=== PATIENT | male | born 1995 | race Caucasian/White ===

== ENCOUNTER 2022-11-21 18:29 | Inpatient (IN) | payer BC ==
[2022-11-21 18:53] VITALS: BMI 25.1
[2022-11-21] MEDS ORDERED: SODIUM CHLORIDE 0.9% 500 ML INFUS.BAG IV ONE (19:39)
[2022-11-21] MEDS ORDERED: ONDANSETRON 4 MG/2 ML VIAL IVPUSH ONE (19:39)
[2022-11-21] MEDS ORDERED: ONDANSETRON 4 MG/2 ML VIAL ONE (20:17)
[2022-11-21 20:27] LABS: BASO % 0.8 % (0-2.0); EOS % 2.5 % (0-4.5); HEMOGLOBIN 15.4 GM/dL (11.7-16.9); LYMPH % 23.3 % (8-40); MCH 29.4 pg (25.7-33.7); MCHC 34.2 g/dl (32.0-35.9); MEAN CELL VOLUME 85.9 fl (80-96); MEAN PLT VOLUME 8.7 fl (7.5-11.1); MONO % 11.7 % (3.8-10.2); NEUT % 61.7 % (42.8-82.8); PLATELET COUNT 214 10^3/uL (134-434); RBC 5.24 M/mm3 (4.00-5.60); RDW 16.7 % (11.9-15.9)
[2022-11-21 20:47] LABS: POTASSIUM 3.7 mmol/L (3.5-5.1)
[2022-11-21 20:49] LABS: CALCIUM 8.9 mg/dL (8.5-10.1)
[2022-11-21 20:50] LABS: ALBUMIN 3.8 g/dl (3.4-5.0); BLOOD UREA NITROGEN 8.4 mg/dL (7-18)
[2022-11-21 20:53] LABS: CREATININE 0.9 mg/dL (0.55-1.3)
[2022-11-21 20:54] LABS: BILIRUBIN,TOTAL 9.6 mg/dL (0.2-1); TOT PROT 6.9 g/dl (6.4-8.2)
[2022-11-21 23:07] LABS: INR 2.16 (0.83-1.09); PROTHROMBIN TIME (PATIENT) 24.9 SEC (9.7-13.0)
[2022-11-21] MEDS ORDERED: LACTATED RINGERS SOLUTION 1000 ML INFUS.BAG IV ONE (23:50)
[2022-11-22] LABS: URINE APPEARANCE CLEAR; URINE BILIRUBIN 2+ (NEGATIVE); URINE COLOR DK YELLOW; URINE GLUCOSE (UA) NEGATIVE (NEGATIVE); URINE KETONE NEGATIVE (NEGATIVE); URINE LEUK ESTERASE NEGATIVE (NEGATIVE); URINE NITRITE NEGATIVE (NEGATIVE); URINE PROTEIN TRACE (NEGATIVE)
[2022-11-22 00:35] LABS: METHADONE, UR NEGATIVE (NEGATIVE); OPIATES, URI NEGATIVE (NEGATIVE); PHENCYCLIDINE,URINE NEGATIVE (NEGATIVE); URINE AMPHETAMINES NEGATIVE (NEGATIVE); URINE BENZODIAZEPINES NEGATIVE (NEGATIVE)
[2022-11-22 00:36] LABS: URINE BARBITURATES NEGATIVE (NEGATIVE)
[2022-11-22 00:45] LABS: COCAINE, UR POSITIVE (NEGATIVE)
[2022-11-22 06:26] LABS: HEMATOCRIT 42.2 % (35.4-49); HEMOGLOBIN 14.1 GM/dL (11.7-16.9); MCH 29.2 pg (25.7-33.7); MCHC 33.4 g/dl (32.0-35.9); MEAN CELL VOLUME 87.4 fl (80-96); MEAN PLT VOLUME 9.4 fl (7.5-11.1); PLATELET COUNT 198 10^3/uL (134-434); RBC 4.83 M/mm3 (4.00-5.60); RDW 16.4 % (11.9-15.9); WHITE BLOOD COUNT 8.5 K/mm3 (4.0-10.0)
[2022-11-22 06:48] LABS: ALBUMIN 3.3 g/dl (3.4-5.0); BLOOD UREA NITROGEN 6.4 mg/dL (7-18); CALCIUM 8.8 mg/dL (8.5-10.1); MAGNESIUM 2.1 mg/dL (1.8-2.4)
[2022-11-22 06:51] LABS: BILIRUBIN,DIRECT 6.2 mg/dL (0.0-0.2); CREATININE 0.9 mg/dL (0.55-1.3); PHOSPHOROUS 3.4 mg/dL (2.5-4.9)
[2022-11-22 06:53] LABS: BILIRUBIN,TOTAL 9.3 mg/dL (0.2-1)
[2022-11-22] MEDS ORDERED: SODIUM CHLORIDE 1,000 ML IV SCH (09:30)
[2022-11-22] MEDS ORDERED: ENOXAPARIN NA (PORCINE) 40 MG/0.4 ML DISP.SYRIN SQ SCH (10:00)
[2022-11-22] MEDS: DEXTROSE 5%-NORMAL SALINE 1,000 ML IV SCH (10:20)
[2022-11-22] MEDS ORDERED: ACETYLCYSTEINE INJECTION 20% 12,200 MG in DEXTROSE 5%-WATER - 250 ML IVPB ONE (13:15)
[2022-11-22] MEDS ORDERED: WATER IVPB ONE ×3 (13:16→20:00)
[2022-11-22] MEDS ORDERED: DEXTROSE 5% IVPB ONE ×3 (13:16→20:00)
[2022-11-22] MEDS ORDERED: ACETYLCYSTEINE IVPB ONE ×3 (13:16→20:00)
[2022-11-22] MEDS ORDERED: PHYTONADIONE 10 MG/1 ML AMP IVPB ONE (13:30)
[2022-11-22] MEDS: ONDANSETRON 4 MG/2 ML VIAL IVPUSH PRN (16:28)
[2022-11-22 16:34] LABS: INR 2.71 (0.83-1.09); PROTHROMBIN TIME (PATIENT) 31.1 SEC (9.7-13.0)
[2022-11-23] MEDS: DEXTROSE 5%-NORMAL SALINE 1,000 ML IV SCH ×2 (07:26→14:05)
[2022-11-23 08:32] LABS: BASO % 1.3 % (0-2.0); EOS % 4.4 % (0-4.5); HEMATOCRIT 42.6 % (35.4-49); LYMPH % 30.9 % (8-40); MCH 29.1 pg (25.7-33.7); MEAN PLT VOLUME 9.6 fl (7.5-11.1); MONO % 11.8 % (3.8-10.2); NEUT % 51.6 % (42.8-82.8); PLATELET COUNT 204 10^3/uL (134-434); RBC 4.84 M/mm3 (4.00-5.60); RDW 16.5 % (11.9-15.9); WHITE BLOOD COUNT 6.7 K/mm3 (4.0-10.0)
[2022-11-23 08:33] LABS: INR 1.93 (0.83-1.09); PROTHROMBIN TIME (PATIENT) 22.2 SEC (9.7-13.0)
[2022-11-23 08:49] LABS: POTASSIUM 3.7 mmol/L (3.5-5.1)
[2022-11-23 08:52] LABS: ALBUMIN 3.1 g/dl (3.4-5.0); BLOOD UREA NITROGEN 5.6 mg/dL (7-18); CALCIUM 8.9 mg/dL (8.5-10.1)
[2022-11-23 08:55] LABS: BILIRUBIN,DIRECT 7.3 mg/dL (0.0-0.2); CREATININE 0.9 mg/dL (0.55-1.3)
[2022-11-23 08:57] LABS: BILIRUBIN,TOTAL 11.6 mg/dL (0.2-1); TOT PROT 5.5 g/dl (6.4-8.2)
[2022-11-23] MEDS: ONDANSETRON 4 MG/2 ML VIAL IVPUSH PRN (10:22)
[2022-11-23] MEDS: POLYETHYLENE GLYCOL (HEALTHYLAX) 3350 17 GM PACKET PO SCH ×2 (10:55→21:47)
[2022-11-23 20:10] LABS: ALBUMIN 3.2 g/dl (3.4-5.0)
[2022-11-23 20:12] LABS: BILIRUBIN,DIRECT 8.2 mg/dL (0.0-0.2)
[2022-11-23 20:14] LABS: BILIRUBIN,TOTAL 12.3 mg/dL (0.2-1)
[2022-11-23 20:15] LABS: TOT PROT 5.8 g/dl (6.4-8.2)
[2022-11-23] MEDS ORDERED: ACETYLCYSTEINE IVPB ONE (20:25)
[2022-11-23] MEDS ORDERED: DEXTROSE 5% IVPB ONE (20:25)
[2022-11-23] MEDS ORDERED: WATER IVPB ONE (20:25)
[2022-11-23] MEDS: SENNOSIDES 8.6MG TABLET (FP) PO SCH (21:47)
[2022-11-24] MEDS: DEXTROSE 5%-NORMAL SALINE 1,000 ML IV SCH ×2 (05:03→07:43)
[2022-11-24 07:54] LABS: HEMOGLOBIN 14.2 GM/dL (11.7-16.9); MCH 29.2 pg (25.7-33.7); MCHC 33.8 g/dl (32.0-35.9); MEAN CELL VOLUME 86.6 fl (80-96); MEAN PLT VOLUME 8.8 fl (7.5-11.1); PLATELET COUNT 189 10^3/uL (134-434); RBC 4.85 M/mm3 (4.00-5.60); RDW 16.4 % (11.9-15.9); WHITE BLOOD COUNT 5.9 K/mm3 (4.0-10.0)
[2022-11-24 08:08] LABS: POTASSIUM 4.3 mmol/L (3.5-5.1)
[2022-11-24 08:14] LABS: CALCIUM 9.1 mg/dL (8.5-10.1)
[2022-11-24 08:15] LABS: BLOOD UREA NITROGEN 4.8 mg/dL (7-18); MAGNESIUM 2.1 mg/dL (1.8-2.4)
[2022-11-24 08:16] LABS: PHOSPHOROUS 4.1 mg/dL (2.5-4.9)
[2022-11-24 08:18] LABS: TOT PROT 5.8 g/dl (6.4-8.2)
[2022-11-24 09:04] LABS: BILIRUBIN,DIRECT 8.2 mg/dL (0.0-0.2)
[2022-11-24 10:07] LABS: INR 1.86 (0.83-1.09); PROTHROMBIN TIME (PATIENT) 21.4 SEC (9.7-13.0)
[2022-11-24] MEDS: POLYETHYLENE GLYCOL (HEALTHYLAX) 3350 17 GM PACKET PO SCH ×2 (10:37→21:49)
[2022-11-24] MEDS: ONDANSETRON 4 MG/2 ML VIAL IVPUSH PRN (11:38)
[2022-11-24] MEDS ORDERED: DOCUSATE SODIUM 100 MG CAPSULE (FP) PO SCH (13:30)
[2022-11-24] MEDS ORDERED: WATER IVPB ONE (14:30)
[2022-11-24] MEDS ORDERED: ACETYLCYSTEINE IVPB ONE (14:30)
[2022-11-24] MEDS ORDERED: DEXTROSE 5% IVPB ONE (14:30)
[2022-11-24] MEDS: SENNOSIDES 8.6MG TABLET (FP) PO SCH (21:50)
[2022-11-25] MEDS: DEXTROSE 5%-NORMAL SALINE 1,000 ML IV SCH (06:09)
[2022-11-25] MEDS: POLYETHYLENE GLYCOL (HEALTHYLAX) 3350 17 GM PACKET PO SCH ×3 (06:09→21:37)
[2022-11-25 09:54] LABS: HEMATOCRIT 42.6 % (35.4-49); HEMOGLOBIN 14.1 GM/dL (11.7-16.9); MCH 29.1 pg (25.7-33.7); MCHC 33.1 g/dl (32.0-35.9); MEAN CELL VOLUME 87.9 fl (80-96); MEAN PLT VOLUME 9.5 fl (7.5-11.1); PLATELET COUNT 178 10^3/uL (134-434); RBC 4.85 M/mm3 (4.00-5.60); RDW 16.8 % (11.9-15.9); WHITE BLOOD COUNT 5.9 K/mm3 (4.0-10.0)
[2022-11-25 10:02] LABS: INR 1.75 (0.83-1.09); PROTHROMBIN TIME (PATIENT) 20.2 SEC (9.7-13.0)
[2022-11-25 10:08] LABS: BASO % 0.8 % (0-2.0); EOS % 4.9 % (0-4.5); HEMATOCRIT 41.6 % (35.4-49); HEMOGLOBIN 13.9 GM/dL (11.7-16.9); LYMPH % 23.7 % (8-40); MCH 28.7 pg (25.7-33.7); MCHC 33.3 g/dl (32.0-35.9); MEAN CELL VOLUME 86.2 fl (80-96); MEAN PLT VOLUME 8.9 fl (7.5-11.1); MONO % 9.1 % (3.8-10.2); NEUT % 61.5 % (42.8-82.8); PLATELET COUNT 170 10^3/uL (134-434); RBC 4.83 M/mm3 (4.00-5.60); RDW 16.7 % (11.9-15.9); WHITE BLOOD COUNT 5.6 K/mm3 (4.0-10.0)
[2022-11-25 10:10] LABS: POTASSIUM 4.1 mmol/L (3.5-5.1)
[2022-11-25 10:11] LABS: CALCIUM 9.1 mg/dL (8.5-10.1)
[2022-11-25 10:12] LABS: BLOOD UREA NITROGEN 5.3 mg/dL (7-18)
[2022-11-25 10:15] LABS: CREATININE 1.1 mg/dL (0.55-1.3)
[2022-11-25 10:17] LABS: BILIRUBIN,TOTAL 11.8 mg/dL (0.2-1)
[2022-11-25] MEDS: SENNOSIDES 8.6MG TABLET (FP) PO SCH (21:37)
[2022-11-26] MEDS: POLYETHYLENE GLYCOL (HEALTHYLAX) 3350 17 GM PACKET PO SCH (05:32)
[2022-11-26 12:40] VITALS: BP 129/67; PULSE 67; RESP 17; TEMP 98.2
== END 2022-11-26 14:10 | disposition home or self-care (01) | DRG 443 ==
LOC: JER 18:29 → JERBED 23:59 → J6S 11-22 05:53
PROVIDERS: ADMIT Internal Medicine; ATTEND Internal Medicine
DX: K72.00 Acute and subacute hepatic failure without coma (principal); R74.01 Elevation of levels of liver transaminase levels; L30.9 Dermatitis, unspecified; R00.1 Bradycardia, unspecified; K76.0 Fatty (change of) liver, not elsewhere classified; K70.10 Alcoholic hepatitis without ascites; F10.10 Alcohol abuse, uncomplicated; F19.10 Other psychoactive substance abuse, uncomplicated
CPT/HCPCS: 36415; 71045-TC-FY; 74177-TC; 74183-TC; 76705-TC; 80053; 80076; 80307; 81003; 82248; 82550; 82728; 82977; 83036; 83516; 83540; 83550; 83690; 83735; 84100; 84439; 84443; 84466; 85025; 85027; 85610; 86038; 86140; 86664; 86695; 86696; 86704; 86708; 86709; 86803; 87086; 87207; 87340; 87350; 87380; 87517; 87522; 87529; 87635; 87799; 87902; 93005; 93010; 99285-25; A9579; Q9967